=== PATIENT | male | born 1960 | race Caucasian/White ===

== ENCOUNTER 2020-07-09 08:50 | Inpatient (IN) | payer SELFPAY ==
[~2020-07-09] VITALS: Ht 182.9 cm; Wt 80.9 kg
--- NOTE | 2020-07-09 09:26 | PHYS DOC ---
Past History Past Medical History: CVA, High Cholesterol, Hypertension Past Surgical History: Other (Prior left endarterectomy 1 year ago) Adult General Chief Complaint Chief Complaint: SEIZURE HPI HPI Patient is a 60yo male who presents via EMSA for suspect seizure. Per and EMS, patient was walking at home when he was witnessed stopping, lowing himself to the ground and subsequently started having left upper extremity convulsions. These were rhythmic and could not be controlled by the patient. This concerned who called EMS for evaluation. On scene, patient hemodynamically stable but continued having rhythmic left upper arm movements described as tonic-clonic, no generalized/grand-mal activity was noted. Patient was given 2.5mg Versed with improvement in condition and transported to our ED for evaluation. On arrival, patient continues to have left upper extremity tonic-clonic movements that are uncontrolled. He denies any pain. He is able to recall entirety of presenting symptoms and story, did not hit head, no LOC. He has never had a seizure. Patient admits past medical history of hypertension (amlodipine), hypercholesterol (takes high intensity statin), and takes plavix daily. Patient reports suffering a stroke ~1 year ago and was hospitalized for this, states the cause was embolic in nature from stenosed carotid arteries. He was found to have 100% occlusion of right and 90% blockage on the left. Patient reports having "a stent" put in the left carotid prior to hospital discharge. Review of Systems Review of Systems Fourteen body systems of review of systems have been reviewed. See HPI for pertinent positives and negative responses, other cobos all other systems are negative, non-pertinent or non-contributory Physical Exam Physical Exam Constitutional: Pt is oriented to person, place, and time. Pt appears well- developed and well-nourished. HENT: Head: Normocephalic and atraumatic. Mouth/Throat: Oropharynx is clear and moist. No hematomas or lacerations or abrasions to face or scalp OP clear, no blood, no malocclusion, dentition intact but poor Nares clear, no nasal septal hematoma TMs clear, no hemotympanum Midface stable Eyes: Conjunctivae and EOM are normal. Pupils are equal, round, and reactive to light. Neck: C-spine midline nontender, no step-offs Cardiovascular: Normal rate, regular rhythm and normal heart sounds. Pulmonary/Chest: Effort normal and breath sounds normal. No respiratory distress. No wheezes. CTA bilaterally Abdominal: Soft. Bowel sounds are normal. Pt exhibits no distension. There is no tenderness. Musculoskeletal: No bony tenderness to extremities, no deformities, full ROM extremities Chest wall stable Pelvis stable and non-tender No vertebral TTP and spine without stepoffs Neurological: Pt is alert and oriented to person, place, and time. Moving all extremities willfully, able to wiggle all fingers and toes. 4/5 muscle strength of left upper extremity versus remaining extremities which is new but much improved since uncontrolled tonic-clonic jerking Alert and oriented x 3 Sensation decreased in left C6 and C7 dermatones, poor discrimination between sharp and dull touch [id number] and hchq-ra-mcqy exams unremarkable Gait unremarkable. Skin: Skin is warm and dry. No abrasions, no lacerations Psychiatric: Behavior is appropriate for situation Nursing note and vitals reviewed. Current Patient Data Vital Signs Vital Signs Date Time Temp Pulse Resp B/P (MAP) Pulse Ox O2 Delivery O2 Flow Rate FiO2 07/09/20 20:11 97.8 61 18 154/83 (106) 99 Room Air Lab Results Laboratory Tests Test 07/09/20 09:38 07/09/20 12:54 White Blood Count 8.0 x10^3/uL (4.0-11.0) Red Blood Count 4.82 x10^6/uL (4.30-5.70) Hemoglobin 15.5 g/dL (13.0-17.5) Hematocrit 46.1 % (39.0-53.0) Mean Corpuscular Volume 96 fL (79-100) Mean Corpuscular Hemoglobin 32 pg (25-35) Mean Corpuscular Hemoglobin Concent 34 g/dL (31-37) Red Cell Distribution Width 12.9 % (11.5-14.5) Platelet Count 238 x10^3/uL (140-400) Neutrophils (%) (Auto) 68 % (31-73) Lymphocytes (%) (Auto) 26 % (24-48) Monocytes (%) (Auto) 5 % (0-9) Eosinophils (%) (Auto) 0 % (0-3) Basophils (%) (Auto) 1 % (0-3) Neutrophils # (Auto) 5.4 x10^3uL (1.8-7.7) Lymphocytes # (Auto) 2.0 x10^3/uL (1.0-4.8) Monocytes # (Auto) 0.4 x10^3/uL (0.0-1.1) Eosinophils # (Auto) 0.0 x10^3/uL (0.0-0.7) Basophils # (Auto) 0.1 x10^3/uL (0.0-0.2) Sodium Level 138 mmol/L (136-145) Potassium Level 3.8 mmol/L (3.5-5.1) Chloride Level 101 mmol/L (98-107) Carbon Dioxide Level 24 mmol/L (21-32) Anion Gap 13 (6-14) Blood Urea Nitrogen 14 mg/dL (8-26) Creatinine 1.4 mg/dL (0.7-1.3) Estimated GFR (Cockcroft-Gault) 52.1 BUN/Creatinine Ratio 10 (6-20) Glucose Level 96 mg/dL (70-99) Lactic Acid Level 7.1 mmol/L (0.4-2.0) 1.7 mmol/L (0.4-2.0) Calcium Level 9.1 mg/dL (8.5-10.1) Total Bilirubin 0.4 mg/dL (0.2-1.0) Aspartate Amino Transf (AST/SGOT) 12 U/L (15-37) Alanine Aminotransferase (ALT/SGPT) 19 U/L (16-63) Alkaline Phosphatase 68 U/L (46-116) Creatine Kinase 54 U/L (39-308) Troponin I Quantitative < 0.017 ng/mL (0-0.055) YP-Lgh-R-Type Natriuretic Peptide 108 pg/mL (0-124) Total Protein 7.4 g/dL (6.4-8.2) Albumin 4.2 g/dL (3.4-5.0) Albumin/Globulin Ratio 1.3 (1.0-1.7) EKG EKG EKG ordered and interpreted by myself at 0950 hrs. as sinus rhythm at 81 bpm, QTC 470 otherwise unremarkable intervals, left axis deviation, no acute ischemic findings, no STEMI Radiology/Procedures Radiology/Procedures PROCEDURE: CHEST AP ONLY Single view of the chest. 07/09/2020 9:15 AM Indication: Reason: SEIZURE / Spl. Instructions: / History: Comparison: None Findings: There is no focal consolidation. There is no pleural effusion or pneumothorax. The cardiomediastinal silhouette and pulmonary vasculature are within normal limits. No acute osseous abnormalities are seen. Impression: No evidence of acute cardiopulmonary process. Electronically signed by: Eligio Trimble MD (07/09/2020 10:12 AM) [id number] PROCEDURE: CT HEAD WO CONTRAST EXAM: CT Head without IV contrast INDICATION: Reason: SEIZURE / Spl. Instructions: / History: TECHNIQUE: Multi-detector row CT images were obtained of the head without the use of IV contrast. All CT scans performed at this facility utilize dose optimization techniques as appropriate to the exam, including the following: Automated exposure control and adjustment of the mA and/or KV according to patient size (this includes techniques or standardized protocols for targeted exams where dose is indication/reason for exam). COMPARISON: None FINDINGS: BRAIN PARENCHYMA: No evidence of acute intraparenchymal hemorrhage or infarct. Right frontotemporal encephalomalacia consistent with chronic MCA territory infarct is redemonstrated, involving the posterior aspect of the insular cortex as well. Chronic infarct in the right caudate head is also evident. VENTRICLES & EXTRA-AXIAL SPACES: Ventricles are within normal limits. Basilar cisterns are patent. No pathologic extra-axial fluid collection or mass. ORBITS: Orbital contents are unremarkable. SINUSES: Visualized paranasal sinuses well aerated. There is a trace right mastoid effusion. OSSEOUS & SOFT TISSUES: Calvarium and skull base are intact. IMPRESSION: Chronic right MCA territory infarct involving the frontal and temporal lobes with associated encephalomalacia and gliosis. No acute intracranial hemorrhage or other acute intracranial process shown. Electronically signed by: Leonarda Dickson MD (07/09/2020 10:22 AM) [id number] Heart Score HEART Score for Chest Pain: HEART Score for Chest Pain Response (Comments) Value History Slighlty/Non-Suspicious 0 ECG Normal 0 Age >45 - < 65 1 Risk Factors >3 Risk Factors or Hx CAD 2 Troponin < Normal Limit 0 Total 3 Risk Factors: Risk Factors: DM, Current or recent (<one month) smoker, HTN, HLP, family history of CAD, obesity. Risk Scores: Risk Factors: DM, Current or recent (<one month) smoker, HTN, HLP, family history of CAD, obesity. Course & Med Decision Making Course & Med Decision Making Pertinent Labs and Imaging studies reviewed. (See chart for details) Patient's condition improved with ED intervention but not enough to be discharged home Dr. Parker, Neurology called and case discussed. Most likely diagnosis of focal seizure discussed. He recommended 1000mg Keppra load and admit to [place] for further evaluation, workup, and rehabilitation Dr. Hale contacted and case discussed, he agreed to accept patient under his care Patient and patient's updated on proposed plan of care and both amenable. All questions and concerns addressed prior to ED departure Dragon Disclaimer Dragon Disclaimer This electronic medical record was generated, in whole or in part, using a voice recognition dictation system. Departure Departure: Impression: Primary Impression: Focal seizure Additional Impressions: History of CVA (cerebrovascular accident) HTN (hypertension) HLD (hyperlipidemia) Disposition: ADMITTED INPT THIS HOSP Admitting Physician: Wilder Hale Condition: STABLE Problem Qualifiers JOEL POLO DO Jul 09, 2020 09:26
[2020-07-09 10:01] LABS: BASO # 0.1 x10^3/uL (0.0-0.2); BASO % 1 % (0-3); EOS % 0 % (0-3); HEMATOCRIT 46.1 % (39.0-53.0); HEMOGLOBIN 15.5 g/dL (13.0-17.5); LYMPH % 26 % (24-48); MEAN CORPUSCULAR HEMOGLOBIN 32 pg (25-35); MEAN CORPUSCULAR HGB CONC 34 g/dL (31-37); MEAN CORPUSCULAR VOLUME 96 fL (79-100); MONO # 0.4 x10^3/uL (0.0-1.1); MONO % 5 % (0-9); NEUT # 5.4 x10^3uL (1.8-7.7); NEUT % 68 % (31-73); PLATELET COUNT 238 x10^3/uL (140-400); RED BLOOD COUNT 4.82 x10^6/uL (4.30-5.70); RED CELL DISTRIBUTION WIDTH 12.9 % (11.5-14.5)
[2020-07-09 10:11] LABS: CALCIUM 9.1 mg/dL (8.5-10.1); CREATININE 1.4 mg/dL (0.7-1.3); GFR 52.1; POTASSIUM 3.8 mmol/L (3.5-5.1)
--- NOTE | 2020-07-09 10:15 | RAD ---
Single view of the chest. 07/09/2020 9:15 AM Indication: Reason: SEIZURE / Spl. Instructions: / History: Comparison: None Findings: There is no focal consolidation. There is no pleural effusion or pneumothorax. The cardiomediastinal silhouette and pulmonary vasculature are within normal limits. No acute osseous abnormalities are seen. Impression: No evidence of acute cardiopulmonary process. Electronically signed by: Eligio Trimble MD (07/09/2020 10:12 AM) [id number]
[2020-07-09 10:18] LABS: ALBUMIN 4.2 g/dL (3.4-5.0); ALBUMIN/GLOBULIN RATIO 1.3 (1.0-1.7); TOTAL BILIRUBIN 0.4 mg/dL (0.2-1.0); TOTAL PROTEIN 7.4 g/dL (6.4-8.2)
--- NOTE | 2020-07-09 10:24 | RAD ---
EXAM: CT Head without IV contrast INDICATION: Reason: SEIZURE / Spl. Instructions: / History: TECHNIQUE: Multi-detector row CT images were obtained of the head without the use of IV contrast. All CT scans performed at this facility utilize dose optimization techniques as appropriate to the exam, including the following: Automated exposure control and adjustment of the mA and/or KV according to patient size (this includes techniques or standardized protocols for targeted exams where dose is indication/reason for exam). COMPARISON: None FINDINGS: BRAIN PARENCHYMA: No evidence of acute intraparenchymal hemorrhage or infarct. Right frontotemporal encephalomalacia consistent with chronic MCA territory infarct is redemonstrated, involving the posterior aspect of the insular cortex as well. Chronic infarct in the right caudate head is also evident. VENTRICLES & EXTRA-AXIAL SPACES: Ventricles are within normal limits. Basilar cisterns are patent. No pathologic extra-axial fluid collection or mass. ORBITS: Orbital contents are unremarkable. SINUSES: Visualized paranasal sinuses well aerated. There is a trace right mastoid effusion. OSSEOUS & SOFT TISSUES: Calvarium and skull base are intact. IMPRESSION: Chronic right MCA territory infarct involving the frontal and temporal lobes with associated encephalomalacia and gliosis. No acute intracranial hemorrhage or other acute intracranial process shown. Electronically signed by: Leonarda Dickson MD (07/09/2020 10:22 AM) [id number]
[2020-07-09] MEDS ORDERED: IV NORMAL SALINE 1,000ML 1,000 ML IV ONE (10:45)
[2020-07-09] MEDS ORDERED: amLODIPine BESYLATE 5 MG TABLET PO ONE (12:30)
--- NOTE | 2020-07-09 12:48 | HP ---
ADMIT DATE: 07/09/2020 ATTENDING PHYSICIAN: Dr. White. CHIEF COMPLAINT: Witnessed seizures. HISTORY OF PRESENT ILLNESS: The patient is a 60-year-old gentleman who had a significant stroke 5 months ago. It was completed embolic stroke involving the right middle cerebral artery distribution with associated encephalomalacia. Repeat CT scan showed no new stroke. He had a witnessed tonic-clonic seizure involving his left upper arm. It lasted for several minutes and witnessed that he had a second episode in the ED and he was given intravenous lorazepam with improvement. Neurology was consulted. Keppra was administered. We are asked to admit him for further treatment and neurologic evaluation. PAST MEDICAL HISTORY: Significant for a stroke, right middle cerebral artery distribution. He has also had a left carotid endarterectomy with bilateral carotid artery stenosis. He has had hypertension. He is a smoker. He has hyperlipidemia. ALLERGIES: He has no known drug allergies. CURRENT MEDICINES: Include aspirin, amlodipine and Lipitor. SOCIAL HISTORY: He is a smoker. He drinks socially. FAMILY HISTORY: Mom is still alive at age 89. Father of complications of heart disease at age 70. He is disabled now. He lives with his . REVIEW OF SYSTEMS: Unremarkable for any COVID exposure, fevers, chills, sweats, palpitations, recent head trauma. All other systems reviewed and turned to be negative. PHYSICAL EXAMINATION: GENERAL: When I saw him, this is a pleasant, middle-aged gentleman. INITIAL VITAL SIGNS: Showed that he was afebrile. Please refer to the database. HEENT: Head is without trauma. There is left-sided orbital droop along with some facial droop. NECK: Supple. There were no bruits identified. LUNGS: Otherwise clear. CARDIOVASCULAR: Showed regular heart tones. No gallops. Peripheral pulses are palpable and full. ABDOMEN: Soft, scaphoid, nontender, no organomegaly. Bowel sounds were hypoactive. EXTREMITIES: Showed no cyanosis or edema. NEUROLOGIC: He has residual left-sided hemiparesis with the facial droop. He is nonambulatory at this time. SKIN: Otherwise warm and dry. PERTINENT LABORATORY STUDIES AND IMAGING: Chest x-ray was clear. The CT of the head showed chronic right middle cerebral artery territory infarct involving the frontal and temporal lobes with associated encephalomalacia and gliosis. No new hemorrhage or stroke was identified. LABORATORY DATA: Hemoglobin is 15.5 g/dL, white count of 8000. Electrolytes within normal range. Lactic acid as part of the routine level was 7.1. This was drawn shortly after the seizure activity. Creatinine is 1.4 mg percent. Transaminases normal. Cardiac enzymes negative for coronary ischemia. ASSESSMENT: 1. A 60-year-old gentleman with witnessed partial complex seizure involving the left upper arm. 2. Definite foci of seizures with previous embolic stroke of the right middle cerebral artery distribution. Clinically, he has a left-sided hemiparesis. 3. Chronic obstructive pulmonary disease. 4. Hypertension. 5. Hyperlipidemia. PLAN: 1. Admission to the inpatient unit. 2. I have ordered Keppra loading 1000 mg twice a day. 3. Formal Neurology consultation. 4. Continue home meds. 5. Diet as tolerated. LLOYD WHITE MD DR: RODERICK/mango JOB#: [id number] / [id number]
[2020-07-09 15:35] VITALS: BP 160/89
[2020-07-09] MEDS ORDERED: ASPI-630 PO (18:51)
[2020-07-09] MEDS ORDERED: AMLO-186 PO (18:51)
[2020-07-09] MEDS ORDERED: FENO160T PO (18:51)
[2020-07-09 20:11] VITALS: BP 154/83
[2020-07-09] MEDS: levETIRAcetam 500 MG TABLET PO SCH (20:35)
[2020-07-09 22:29] VITALS: BP 151/73
[2020-07-10 04:58] VITALS: BP 160/88
[2020-07-10] MEDS: levETIRAcetam 500 MG TABLET PO SCH (08:36)
[2020-07-10] MEDS ORDERED: NICOTINE 21MG PATCH. TD SCH (09:00)
--- NOTE | 2020-07-10 10:52 | DS ---
DATE OF DISCHARGE: 07/09/2020 ATTENDING PHYSICIAN: Dr. White. FINAL DISCHARGE DIAGNOSES: 1. Witnessed partial complex seizure involving the left upper arm. 2. Definite foci of seizure with previous embolic stroke of the right middle cerebral artery distribution. 3. Left-sided hemiparesis, improving. 4. Chronic obstructive pulmonary disease. 5. Hypertension. 6. Hyperlipidemia. 7. Chronic alcohol use. 8. Probable underlying depression. HISTORY AND PHYSICAL: This is a 60-year-old gentleman who had an extensive stroke involving the middle cerebral artery distribution in 02/2019. The stroke was completed, he was seen by neurologist at [facility]. He has undergone extensive therapy with physical therapy, occupational therapy and speech therapy. He had a witnessed partial seizure of the left upper arm. It was more focal motor seizure. He did not remember the first episode, but he had a second episode in the ED. He was given Ativan and Keppra in the ED and admitted for evaluation and observation. PHYSICAL EXAMINATION: Please see the dictated note. PERTINENT LABORATORY AND X-RAY STUDIES: The chest x-ray was unremarkable without any acute infiltrate. CT of the head showed no evidence of acute hemorrhage or new infarct. He had right frontotemporal encephalomalacia consistent with chronic MCA territory infarct. There is chronic infarct of right caudate head is also seen. LABORATORY STUDIES: Hemoglobin 15.5 g/dL, white cell count 8000. Electrolytes within normal range. Lactic acid initially 7.1 postictal, repeated was 1.7. Cardiac enzymes negative for coronary ischemia. Creatinine is 1.4 mg/dL. COURSE IN THE HOSPITAL: The patient was loaded with intravenous Keppra. Neurology consultation was entertained. Dr. Parker's recommendation on the chart. He recommended his carotid studies as an outpatient. He wanted to go home. By the second hospital day, vital signs are stable. He ate all the breakfast. He had no further seizures. He was ambulatory independently. At this time, I recommended Keppra 1000 mg b.i.d. for a month and then a followup visit with his primary neurologist at [facility] in 1 months' time. At that time, they will decide what further testing needs to be done whether or not to continue the Keppra or to stop. His aspirin, amlodipine and Lopid doses are unchanged. He was discharged then from our hospital in stable condition with explicit instructions and followup care. LLOYD WHITE MD DR: RODERICK/mango JOB#: [id number] / [id number]
--- NOTE | 2020-07-10 19:27 | EKG ---
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
--- NOTE | 2020-07-11 01:35 | CONS ---
DATE OF CONSULTATION: 07/09/2020 NEUROLOGY CONSULTATION REFERRING PHYSICIAN: Dr. Hale. REASON FOR CONSULTATION: Seizure-like activities. HISTORY OF PRESENT ILLNESS: This is a 60-year-old right-handed male who was admitted through Emergency Room after he presented with chief complaint of "involuntarily movement of the left upper extremity." According to the patient, he has not had any history of seizure; however, he did have 2 strokes in 2019. The last one was in March of this year, presented with right MCA infarct causing paresis of the left upper extremity. He rated his stroke to his poorly controlled hypertension. The patient stated the day prior to the admission, he started having jerking movements of the left upper extremity, witnessed by ER physicians, who described it as tonic-clonic movements, lasted approximately 5-10 minutes. The patient did not have any loss of consciousness. He did recall the events and he did not have any post-event confusion or disorientation. He denies bowel or bladder dysfunctions. Based on these spells, the patient was loaded with intravenous Keppra. The patient stated in his way to the floor he had another tonic-clonic jerking movements of the left upper extremity. Since that time, he has not had any recurrent spells. Initial nonenhanced head CT scan revealed chronic right MCA infarct involving the frontal and temporal regions without acute intracranial process. PAST MEDICAL HISTORY: Significant for stroke as described above. He also had included of the right internal carotid artery, a 90% stenosis of the left internal carotid artery, hypertension, coronary artery disease, history of peripheral vascular disease of the lower extremities and hyperlipidemia. PAST SURGICAL HISTORY: Positive for status post left internal carotid artery stent in 02/2019 and bilateral lower extremity stent placement. SOCIAL HISTORY: The patient is . He is a smoker. He drinks alcohol occasionally. He denies illegal drug use. FAMILY HISTORY: Positive for heart disease. Father at age of 70 from heart problems. Mother is alive at the age of 89. REVIEW OF SYSTEMS: A 10-point review of system was performed as mentioned above in history of present illness, otherwise unremarkable. CURRENT HOME MEDICATIONS: Amlodipine, Lipitor, and aspirin. ALLERGIES: No known drug allergies. PHYSICAL EXAMINATION: GENERAL: Well-developed, well-nourished male, not in acute distress. He weighs 80.9 kilos. VITAL SIGNS: Blood pressure 154/83, respiratory rate 18, pulse is 61, temperature 97.8, oxygen saturation 99% on room air. HEENT: Normocephalic, atraumatic, otherwise unremarkable. NECK: Supple. Negative for carotid bruit, lymphadenopathy or thyromegaly. LUNGS: Clear to A and P. CARDIOVASCULAR: Regular rhythm, normal S1, S2. There is no S3, S4 or murmur. ABDOMEN: Soft. Bowel sounds positive. EXTREMITIES: Negative for cyanosis, clubbing or pitting edema. NEUROLOGICAL EXAM: MENTAL STATUS: The patient is alert and oriented x 3. Speech is fluent. There is no language dysfunction. Memory, judgment, and abstracting thinking are normal. The patient denies hallucination or delusion. CRANIAL NERVES: Pupils are equal and reactive to light and accommodation. The extraocular movements are intact. There is no nystagmus. There is no facial motor or sensory deficit. Hearing is intact bilaterally. The palate is elevated symmetrically. Sternocleidomastoid muscles are powerful bilaterally. The patient shrugs his shoulders symmetrically, protrudes his tongue in the midline without fasciculation or atrophy. MOTOR EXAMINATION: No focal muscle bulk wasting. The tone is normal. The strength is -4/5 in the left upper extremity with pronation. Strength elsewhere was 5/5 throughout. Sensory examination revealed normal pinprick, light touch, vibratory and position senses. Deep tendon reflexes were symmetric and hypoactive without pathologic responses. Gait is normal. The patient has abnormal left iijadc-id-guda secondary to paresis of the left upper extremity due to previous stroke. LABORATORY DATA: CBC revealed white blood cells of 8000, hemoglobin 15.5, hematocrit 46.1, platelet count 238,000. Chemistry revealed sodium of 138, potassium 3.8, chloride 101, CO2 of 24, BUN 14, creatinine 1.4, glucose 96, calcium 9.1. Troponin level is normal. EKG normal sinus rhythm. IMPRESSION: 1. Tonic-clonic movements of the left upper extremity consistent with focal seizure disorder. 2. History of bilateral carotid artery stenoses with occluded right upper extremity resulted in right middle cerebral artery infarcts and left upper extremity paresis. 3. Multiple risk factors of stroke including hypertension, hyperlipidemia. 4. Peripheral vascular disease of the lower extremities, required stent placement bilaterally. RECOMMENDATIONS: 1. Continue with current management initiated by Dr. Hale. 2. Continue with current home medications. 3. We will continue with Keppra maintenance dose at 500 twice b.i.d. 4. The patient needs electroencephalogram. 5. We will obtain bilateral carotid artery ultrasounds. M Clement MATHIS MD DR: LAILA/mango JOB#: [id number] / [id number]
== END 2020-07-10 10:34 | disposition home or self-care (01) | DRG 101 ==
LOC: ER 08:50 → 1 SOUTH 11:11
PROVIDERS: ADMIT Hospitalist; ATTEND Hospitalist
DX: G40.209 Localization-related (focal) (partial) symptomatic epilepsy and epileptic syndromes with complex partial seizures, not intractable, without status epilepticus (principal); I69.354 Hemiplegia and hemiparesis following cerebral infarction affecting left non-dominant side; I10 Essential (primary) hypertension; G93.89 Other specified disorders of brain; E78.5 Hyperlipidemia, unspecified; E78.00 Pure hypercholesterolemia, unspecified; F17.200 Nicotine dependence, unspecified, uncomplicated; J44.9 Chronic obstructive pulmonary disease, unspecified; I73.9 Peripheral vascular disease, unspecified; F32.9 Major depressive disorder, single episode, unspecified; I25.10 Atherosclerotic heart disease of native coronary artery without angina pectoris; Z79.02 Long term (current) use of antithrombotics/antiplatelets; Z82.49 Family history of ischemic heart disease and other diseases of the circulatory system
CPT/HCPCS: 36415; 70450; 71045; 80053; 82550; 83605; 83880; 84484; 85025; 93005; 96374; 96375; J1953; J2060; 99285-25

== ENCOUNTER 2020-09-19 07:59 | Emergency (ER) | payer SELFPAY ==
[~2020-09-19] VITALS: Ht 182.9 cm; Wt 80.9 kg
[~2020-09-19 07:59] MED LIST: AMLO-186 PO; ASPI-630 PO; FENO160T PO
[2020-09-19 08:03] VITALS: BP 157/90
[2020-09-19] MEDS ORDERED: IV NORMAL SALINE 500ML 500 ML IV ONE (08:15)
[2020-09-19] MEDS ORDERED: levETIRAcetam 1,500 MG in IV NORMAL SALINE 100ML 100 ML IV ONE (08:30)
[2020-09-19] MEDS ORDERED: IV NORMAL SALINE 100ML 0 ML ONE (08:43)
[2020-09-19] MEDS ORDERED: levETIRAcetam 500 MG/5 ML VIAL IV ONE (08:43)
--- NOTE | 2020-09-19 08:48 | PHYS DOC ---
Past History Past Medical History: CVA, Diabetes, High Cholesterol, Hypertension Past Surgical History: Other Additional Past Surgical Histo: vascular stents Alcohol Use: None General Adult EDM: Chief Complaint: SEIZURE HPI: HPI: Patient is a 60-year-old male with multiple seizures at home. Per EMS report seizures lasted approximately 3 to 4 minutes and involve the left side. Patient states he had a similar occurrence about 3 months ago and stayed in the hospital with a neurology consult. Patient states he was given medications at discharge for 1 month but ran out and has not been able to get an appointment with his neurologist. Patient states he is still having twitching of his left upper and lower extremity. Denies any headaches, vision changes, paresthesias. Patient states that he does not normally have this twitching just has happened since the seizure. 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 Takes 81 mg aspirin daily, denies any other blood thinners. States he otherwise has been well. Denies any falls, tongue biting. Review of Systems: Review of Systems: All other systems within normal limits except for as noted in the HPI Current Medications: Current Meds: Current Medications Medications (Trade) Dose Ordered Sig/Ambrosio Start Time Stop Time Status Last Admin Dose Admin Levetiracetam 1500 mg/Sodium Chloride 115 ml @ 400 mls/hr 1X ONCE 09/19/20 08:30 09/19/20 08:47 Lorazepam (Ativan Inj) 2 mg 1X ONCE 09/19/20 08:30 09/19/20 08:37 DC Sodium Chloride 500 ml @ 0 mls/hr 1X ONCE 09/19/20 08:15 09/19/20 08:17 DC 09/19/20 08:21 100 MLS/HR Allergies: Allergies: Allergies Coded Allergies Type Severity Reaction Last Updated Verified No Known Drug Allergies 07/09/20 No Physical Exam: PE: Constitutional: Well developed, well nourished, no acute distress, non-toxic appearance. [] HENT: Normocephalic, atraumatic, bilateral external ears normal, nose normal. [] Eyes: PERRLA, conjunctiva normal, no discharge. [] Neck: No rigidity, supple, no stridor. [] Cardiovascular: Regular rate and rhythm, brisk cap refill [] Lungs & Thorax: Non labored symmetric respirations, no tachypnea or respiratory distress [] Abdomen: Soft, nondistended. Skin: Warm, dry, no erythema, no rash. [] Back: Unremarkable Extremities: No deformities, range of motion grossly intact, no lower extremity edema [] Neurologic: Alert and oriented X 3, no focal deficits noted., Sensation intact and symmetric. Patient range of motion of upper and lower extremity intact, at patient's baseline slight weakness on left. Involuntary muscle contractions in left upper extremity and left lower extremity, dissolvable face. Cranial nerves intact [] Psychologic: Affect normal, judgement normal, mood normal. [] Current Patient Data: Vital Signs: Vital Signs Date Time Temp Pulse Resp B/P (MAP) Pulse Ox O2 Delivery O2 Flow Rate FiO2 09/19/20 08:03 99.0 109 16 157/90 (112) 95 Room Air EKG: EKG: [] Radiology/Procedures: Radiology/Procedures: Date of Service: 09/19/2020. Comparison: CT head without contrast from 07/09/2020. Clinical History: Left-sided seizure.. Technique: Helical acquisitions are obtained from the foramen magnum to the vertex without intravenous administration of contrast. Findings: There is an area of encephalomalacia in the right temporal parietal region consistent with chronic right MCA infarct. There is also a small chronic infarct in the head of right caudate nucleus. The ventricles are midline without evidence of dilatation. Mild ex vacuo dilatation of the occipital horn of the right lateral ventricle seen. Normal vickers-white differentiation is maintained. There is no extra axial fluid collection, intraparenchymal hemorrhage or mass lesion. The visualized portions of the orbits, paranasal sinuses and the mastoid air cells appear clear. The calvarium is intact. Impression: 1. No acute intracranial process detected. 2. Chronic right MCA infarct. [] Heart Score: Risk Factors: Risk Factors: DM, Current or recent (<one month) smoker, HTN, HLP, family history of CAD, obesity. Risk Scores: Score 0 - 3: 2.5% MACE over next 6 weeks - Discharge Home Score 4 - 6: 20.3% MACE over next 6 weeks - Admit for Clinical Observation Score 7 - 10: 72.7% MACE over next 6 weeks - Early Invasive Strategies Course & Med Decision Making: Course & Med Decision Making Pertinent Labs and Imaging studies reviewed. (See chart for details) Given 1 mg of Ativan without improvement, given second dose of 2 mg Ativan with cessation of tremors. Suspect tremors are likely ongoing focal seizure. CT head unremarkable for any changes. Seizures likely result of previous stroke. Patient sleepy during ER work-up but awoke and repeat neuro examination shows patient's baseline. He has 5 out of 5 strength on right upper and lower extremity, 4 out of 5 strength in left upper and lower extremity. Patient is alert and oriented. Discussed admission for further monitoring and neurology consult. Patient would like to go home with a prescription for his Keppra and follow-up with his neurologist with [facility]. Agreed to plan and will give refills so that patient may stay compliant with medications until he is able to see his neurologist. Discussed return precautions and no driving [] Dragon Disclaimer: Dragon Disclaimer: This electronic medical record was generated, in whole or in part, using a voice recognition dictation system. Departure Departure: Impression: Primary Impression: Focal seizure Disposition: 01 DC HOME SELF CARE/HOMELESS Condition: STABLE Referrals: PCP,NO (PCP) FRANKIE MATHIS MD Patient Instructions: Seizure, Adult Additional Instructions: May follow-up with Dr. Mathis if unable to see your neurologist for refills Scripts Levetiracetam (LEVETIRACETAM) 1,000 Mg Tablet 1 TAB PO BID for antiepileptic for 30 Days, #60 TAB 5 Refills Prov: DIONICIO DEE MD 09/19/20 DIONICIO DEE MD Sep 19, 2020 08:48
[2020-09-19 08:52] LABS: BASO # 0.1 x10^3/uL (0.0-0.2); BASO % 1 % (0-3); EOS % 0 % (0-3); HEMATOCRIT 44.5 % (39.0-53.0); HEMOGLOBIN 15.2 g/dL (13.0-17.5); LYMPH # 1.9 x10^3/uL (1.0-4.8); LYMPH % 18 % (24-48); MEAN CORPUSCULAR HEMOGLOBIN 31 pg (25-35); MEAN CORPUSCULAR HGB CONC 34 g/dL (31-37); MEAN CORPUSCULAR VOLUME 92 fL (79-100); MONO # 0.5 x10^3/uL (0.0-1.1); MONO % 5 % (0-9); NEUT # 8.2 x10^3uL (1.8-7.7); NEUT % 76 % (31-73); PLATELET COUNT 255 x10^3/uL (140-400); RED BLOOD COUNT 4.83 x10^6/uL (4.30-5.70); RED CELL DISTRIBUTION WIDTH 12.4 % (11.5-14.5); WHITE BLOOD COUNT 10.8 x10^3/uL (4.0-11.0)
--- NOTE | 2020-09-19 09:25 | RAD ---
Exam performed: CT scan of the head without contrast. Date of Service: 09/19/2020. Comparison: CT head without contrast from 07/09/2020. Clinical History: Left-sided seizure.. Technique: Helical acquisitions are obtained from the foramen magnum to the vertex without intravenou s administration of contrast. Findings: There is an area of encephalomalacia in the right temporal parietal region consistent with chronic ri ght MCA infarct. There is also a small chronic infarct in the head of right caudate nucleus. The ventricles are midline without evidence of dilatation. Mild ex vacuo dilatation of the occipital horn of the right lateral ventricle seen. Normal vickers-white differentiation is maintained. There is no extra axial fluid collection, intraparenchymal hemorrhage or mass lesion. The visualized portions of the orbits, paranasal sinuses and the mastoid air cells appear clear. The calvarium is intact. Impression: 1. No acute intracranial process detected. 2. Chronic right MCA infarct. PQRS Compliance Statement: One or more of the following individualized dose reduction techniques were utilized for this examinat ion: 1. Automated exposure control 2. Adjustment of the mA and/or kV according to patient size 3. Use of iterative reconstruction technique Electronically signed by: Yina Khan MD (09/19/2020 9:23 AM) [id number]
[2020-09-19 09:38] LABS: CALCIUM 9.6 mg/dL (8.5-10.1); CREATININE 1.3 mg/dL (0.7-1.3); GFR 56.7; POTASSIUM 4.8 mmol/L (3.5-5.1)
[2020-09-19 09:47] LABS: ALBUMIN 4.3 g/dL (3.4-5.0); ALBUMIN/GLOBULIN RATIO 1.4 (1.0-1.7); PHOSPHORUS 3.1 mg/dL (2.6-4.7); TOTAL BILIRUBIN 0.3 mg/dL (0.2-1.0); TOTAL PROTEIN 7.4 g/dL (6.4-8.2)
[2020-09-19] MEDS ORDERED: LEVE10007 PO (12:35)
[2020-09-19 12:56] LABS: BACTERIA,URINE 0 /HPF (0-FEW); BILIRUBIN,URINE NEG (NEG); CLARITY,URINE CLEAR; COLOR,URINE YELLOW; GLUCOSE,URINE NEG (NEG); NITRITE,URINE NEG (NEG); RBC,URINE 0 /HPF (0-2); SQUAMOUS EPITHELIAL CELL,UR OCC /LPF; UROBILINOGEN,URINE 0.2 mg/dL (0.2 mg/dL); WBC,URINE 0 /HPF (0-4)
== END 2020-09-19 13:35 | disposition home or self-care (01) ==
LOC: ER 07:59
DX: G40.89 Other seizures (principal); R53.1 Weakness; R20.2 Paresthesia of skin; E11.9 Type 2 diabetes mellitus without complications; E78.00 Pure hypercholesterolemia, unspecified; I10 Essential (primary) hypertension; Z86.73 Personal history of transient ischemic attack (TIA), and cerebral infarction without residual deficits; Z98.890 Other specified postprocedural states
CPT/HCPCS: 36415; 70450; 80053; 81001; 83735; 84100; 84484; 85025; 85610; 96361; 96365; 96375; 99284; J1953; J2060; J7040

== ENCOUNTER → 2021-06-23 | Outpatient (CLI) | payer OTHER ==
[~2021-06-23] MED LIST changes: +LEVE10007 PO
--- NOTE | 2021-06-23 14:17 | RAD ---
Single view of the chest. 06/23/2021 1:35 PM Indication: Reason: SHORTNESS OF BREATH / Spl. Instructions: / History: Comparison: Chest radiograph July 09, 2020 Findings: There is no focal consolidation. There is no pleural effusion or pneumothorax. The cardiome diastinal silhouette and pulmonary vasculature are within normal limits. No acute osseous abnormaliti es are seen. Impression: No evidence of acute cardiopulmonary process. Electronically signed by: Eligio Trimble MD (06/23/2021 2:15 PM) [id number]
[2021-06-23 14:28] LABS: BASO # 0.1 x10^3/uL (0.0-0.2); BASO % 1 % (0-3); EOS % 0 % (0-3); HEMATOCRIT 42.6 % (39.0-53.0); HEMOGLOBIN 14.6 g/dL (13.0-17.5); LYMPH # 2.1 x10^3/uL (1.0-4.8); LYMPH % 30 % (24-48); MEAN CORPUSCULAR HEMOGLOBIN 31 pg (25-35); MEAN CORPUSCULAR HGB CONC 34 g/dL (31-37); MEAN CORPUSCULAR VOLUME 91 fL (79-100); MONO # 0.5 x10^3/uL (0.0-1.1); MONO % 7 % (0-9); NEUT # 4.4 x10^3uL (1.8-7.7); NEUT % 62 % (31-73); PLATELET COUNT 272 x10^3/uL (140-400); RED CELL DISTRIBUTION WIDTH 14.1 % (11.5-14.5)
[2021-06-23 14:34] LABS: ALBUMIN 3.7 g/dL (3.4-5.0); ALBUMIN/GLOBULIN RATIO 1.1 (1.0-1.7); CALCIUM 9.4 mg/dL (8.5-10.1); CREATININE 0.9 mg/dL (0.7-1.3); DIRECT BILIRUBIN 0.2 mg/dL (0.0-0.2); GFR 86.4; POTASSIUM 3.9 mmol/L (3.5-5.1); TOTAL BILIRUBIN 0.6 mg/dL (0.2-1.0)
== END ==
LOC: RAD 13:23
PROVIDERS: ATTEND Physician Assistant
DX: L30.9 Dermatitis, unspecified (principal); Z79.899 Other long term (current) drug therapy
CPT/HCPCS: 36415; 71046; 80053; 80061; 82248; 85025; 86481

== ENCOUNTER → 2021-10-26 | Outpatient (CLI) | payer MEDICARE ==
[2021-10-26 15:10] LABS: ALBUMIN 3.9 g/dL (3.4-5.0); ALBUMIN/GLOBULIN RATIO 1.2 (1.0-1.7); BASO # 0.1 x10^3/uL (0.0-0.2); BASO % 1 % (0-3); CALCIUM 9.1 mg/dL (8.5-10.1); CREATININE 0.9 mg/dL (0.7-1.3); EOS % 0 % (0-3); GFR 86.4; HEMATOCRIT 41.5 % (39.0-53.0); HEMOGLOBIN 14.6 g/dL (13.0-17.5); LYMPH # 1.8 x10^3/uL (1.0-4.8); LYMPH % 26 % (24-48); MEAN CORPUSCULAR HEMOGLOBIN 32 pg (25-35); MEAN CORPUSCULAR HGB CONC 35 g/dL (31-37); MEAN CORPUSCULAR VOLUME 90 fL (79-100); MONO # 0.4 x10^3/uL (0.0-1.1); MONO % 6 % (0-9); NEUT # 4.6 x10^3uL (1.8-7.7); NEUT % 67 % (31-73); PLATELET COUNT 249 x10^3/uL (140-400); POTASSIUM 4.9 mmol/L (3.5-5.1); RED CELL DISTRIBUTION WIDTH 14.1 % (11.5-14.5); TOTAL BILIRUBIN 0.6 mg/dL (0.2-1.0); TOTAL PROTEIN 7.1 g/dL (6.4-8.2); WHITE BLOOD COUNT 6.9 x10^3/uL (4.0-11.0)
[2021-10-27 12:47] LABS: BACTERIA,URINE 0 /HPF (0-FEW); CLARITY,URINE CLEAR; COLOR,URINE YELLOW; GLUCOSE,URINE NEG (NEG); NITRITE,URINE NEG (NEG); RBC,URINE 0 /HPF (0-2); UROBILINOGEN,URINE 0.2 mg/dL (0.2 mg/dL); WBC,URINE OCC /HPF (0-4)
[2021-10-27 20:50] LABS: CHOLESTEROL/HDL RATIO 2.5
== END ==
LOC: LAB 14:19
PROVIDERS: ATTEND Physician Assistant
DX: Z79.899 Other long term (current) drug therapy (principal)
CPT/HCPCS: 36415; 80053; 80061; 81001; 85025